=== PATIENT | female | born 1990 | race Two or more races ===

== ENCOUNTER 2016-06-08 19:20 | Emergency (ER) | payer SELFPAY ==
[~2016-06-08] VITALS: Ht 154.9 cm; Wt 43.1 kg
[~2016-06-08 19:20] MED LIST: CEPHALEXIN500 MG ORAL; IBUPROFEN600 MG ORAL; NKM; NORCO 5-325 TA1 EACH ORAL
[2016-06-08] MEDS ORDERED: Lidocaine 2% Visc 15ml soln ORAL ONE (20:00)
[2016-06-08] MEDS ORDERED: Mylanta II UD 30ml ORAL ONE (20:00)
--- NOTE | 2016-06-08 20:42 | Emergency Room Report ---
History of Present Illness General Chief Complaint: Abdominal Pain Source: Patient Present Illness HPI 26-year-old female presents emergency department complaining of burning sensation in the stomach approximately one hour after taking Tylenol with Codeine. Patient states that she is currently in the process of oral miscarriage introduction and earlier today received the first medication and was told to take the second pill at home in 24 hours. She was prescribed Tylenol with codeine for cramping that is to be expected. She states that she took the medication on an empty stomach and is now having nausea and burning sensation in the epigastric area denies abdominal tenderness or cramping pain. Pt localized pain to just under the bottom of the sternum and describes her pain as more discomfort saying it " feels like my stomach is in a knot." She denies vomiting denies constipation or diarrhea. She denies recent travel or ill contacts denies fevers or chills. She denies rashes, swelling of the lips tongue or airway. Denies CP, Palpitations, LOC, AMS, dizziness, Changes in Vision, Sensation, paresthesias, or a sudden severe headache. Allergies: Coded Allergies: No Known Allergies (Unverified , 12/15/12) Patient History Past Medical History: see triage record Past Surgical History: none Pertinent Family History: none Now: No : 7 Para: 3 Immunizations: UTD Reviewed Nursing Documentation: PMH: Agreed, PSxH: Agreed Nursing Documentation-PMH Past Medical History: No History, Except For Hx Asthma: Yes Review of Systems All Other Systems: negative except mentioned in HPI Physical Exam Vital Signs Date Time Temp Pulse Resp B/P Pulse Ox O2 Delivery O2 Flow Rate FiO2 06/08/16 19:41 98.1 63 12 114/68 100 Sp02 EP Interpretation: reviewed, normal General Appearance: no apparent distress, alert, GCS 15, non-toxic Head: normocephalic, atraumatic Eyes: bilateral eye PERRL, bilateral eye normal inspection ENT: hearing grossly normal, normal pharynx, no angioedema, normal voice Neck: full range of motion, supple/symm/no masses Respiratory: chest non-tender, lungs clear, normal breath sounds, speaking full sentences Cardiovascular #1: regular rate, rhythm, no edema Gastrointestinal: normal bowel sounds, non tender, soft, no guarding, no rebound, other - Negative Durham signs, Negative MacBurney's sign, Negative Rosvigns Sign, Negative Psoas, No Peritoneal signs. Rectal: deferred Genitourinary: normal inspection, no CVA tenderness Musculoskeletal: back normal, gait/station normal, normal range of motion, non- tender, no calf tenderness Neurologic: alert, oriented x3, responsive, motor strength/tone normal, sensory intact, speech normal Psychiatric: judgement/insight normal, memory normal, mood/affect normal, no suicidal/homicidal ideation Reflexes: 4+ bicep (R), 4+ bicep (L), 4+ tricep (R), 4+ tricep (L), 4+ knee (R) , 4+ knee (L) Skin: normal color, no rash, warm/dry, well hydrated Lymphatic: no adenopathy Medical Decision Making PA Attestation Dr. jaramillo is my supervising Physician whom patient management has been discussed with. Diagnostic Impression: Primary Impression: Gastritis Qualified Codes: K29.70 - Gastritis, unspecified, without bleeding ER Course 26-year-old female presents emergency department complaining of burning sensation in the stomach approximately one hour after taking Tylenol with Codeine. Patient states that she is currently in the process of oral miscarriage introduction and earlier today received the first medication and was told to take the second pill at home in 24 hours. She was prescribed Tylenol with codeine for cramping that is to be expected. She states that she took the medication on an empty stomach and is now having nausea and burning sensation in the epigastric area denies abdominal tenderness or cramping pain. She denies vomiting denies constipation or diarrhea. She denies recent travel or ill contacts denies fevers or chills. She denies rashes, swelling of the lips tongue or airway. Denies CP, Palpitations, LOC, AMS, dizziness, Changes in Vision, Sensation, paresthesias, or a sudden severe headache. Ddx considered but are not limited to Gastritis, acute appy, diarrhea, UC, PUD, GE, pancreatitis, gallstone Vital signs: are WNL, pt. is afebrile H&PE are most consistent with drug induced gastritis, PE does not suggest acute intra-abdominal process no appreciable TTP on PE, pt NAD non-toxic in appearance. ORDERS: - none required at this time dx is clinical and VS are WNL ED INTERVENTIONS: -4mg Zofran PO - Gi Cocktail PO -Zantac PO --upon re-evaluation pt. states her throat is numb, however her stomach ache has subsided. d/w pt. to follow up with PCP and OBGYN as needed, and to return to the ED with worsening or new symptoms. DISCHARGE: At this time pt. is stable for d/c to home. Will provide printed patient care instructions, and any necessary prescriptions. Care plan and follow up instructions have been discussed with the patient prior to discharge. Last Vital Signs Date Time Temp Pulse Resp B/P Pulse Ox O2 Delivery O2 Flow Rate FiO2 06/08/16 19:41 98.1 63 12 114/68 100 Disposition: HOME, SELF-CARE Condition: Stable Scripts Acetaminophen* (TYLENOL EXTRA STRENGTH*) 500 Mg Tablet 500 MG ORAL Q6H, #30 TAB 0 Refills Prov: Drea Rosario 06/08/16 Ranitidine Hcl* (ZANTAC*) 150 Mg Tablet 150 MG ORAL TWICE A DAY for 30 Days, #60 TAB Prov: Drea Rosario 06/08/16 Ondansetron Odt* (ZOFRAN ODT*) 4 Mg Tab.rapdis 4 MG ORAL Q6H Y for Nausea & Vomiting, #30 TAB Prov: Drea Rosario 06/08/16 Referrals: NOT CHOSEN [facility]/,REFERRING (PCP) Patient Instructions: Gastritis, Adult, Abdominal Pain, Adult Additional Instructions: Take medications as directed. Follow up with PCP and OBGYN in 3 days Return sooner to ED if new symptoms occur, or current symptoms become worse. - Please note that this Emergency Department Report was dictated using [employer] carbon brushes technology software, occasionally this can lead to erroneous entry secondary to interpretation by the dictation equipment. Drea Rosario Jun 08, 2016 20:42
[2016-06-08] MEDS ORDERED: ZANTAC150 MG ORAL (20:53)
[2016-06-08] MEDS ORDERED: ZOFRAN ODT4 MG ORAL (20:53)
[2016-06-08] MEDS ORDERED: TYLENOL EXTRA500 MG ORAL (20:53)
[2016-06-08 21:01] VITALS: BP_SYST 114; BP_SYST 117; BP_DIAS 68; BP_DIAS 71
== END 2016-06-08 21:02 | disposition home or self-care (01) ==
LOC: EMR 20:16
DX: K29.70 Gastritis, unspecified, without bleeding (principal); J45.909 Unspecified asthma, uncomplicated
CPT/HCPCS: 99284

== ENCOUNTER 2017-09-13 21:15 | Emergency (ER) | payer OTHER ==
[~2017-09-13] VITALS: Ht 154.9 cm; Wt 45.4 kg
[~2017-09-13 21:15] MED LIST changes: +TYLENOL EXTRA500 MG ORAL; +ZANTAC150 MG ORAL; +ZOFRAN ODT4 MG ORAL
[2017-09-13 22:00] VITALS: BP 108/71
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
[2017-09-13] MEDS ORDERED: IBUPROFEN600 MG ORAL (22:46)
[2017-09-13 23:00] VITALS: BP 108/71
--- NOTE | 2017-09-14 10:09 | Diagnostic Imaging Report ---
Indication: Trauma Technique: Continuous helical CT scanning of the head was performed utilizing automated exposure control without intravenous contrast material. Axial and coronal reconstructions were obtained. Comparison: None CT dose: Total DLP 1323.3 mGycm; CTDI vol 70.38 mGy Findings: There is no acute intracranial hemorrhage, mass effect or cortical edema. The ventricles, cisterns and sulci are in normal limits for age. Incidental note is made of a retrocerebellar cyst. Visualized mastoid air cells and paranasal sinuses are unremarkable. There is an anterior scalp hematoma. No associated calvarial fracture. IMPRESSION: Anterior scalp hematoma. No calvarial fracture. No evidence of acute intracranial hemorrhage, mass effect or cortical edema. This corresponds with the [facility] preliminary report. Atrophy and nonspecific periventricular hypoattenuation suggestive of chronic ischemic microvascular changes. The CT scanner at [facility] is accredited by the [employer] and the scans are performed using protocols designed to limit radiation exposure to as low as reasonably achievable to attain images of sufficient resolution adequate for diagnostic evaluation.
== END 2017-09-13 23:00 | disposition home or self-care (01) ==
LOC: EMR 21:46
DX: S00.83XA Contusion of other part of head, initial encounter (principal); S00.432A Contusion of left ear, initial encounter; Y04.2XXA Assault by strike against or bumped into by another person, initial encounter; Y92.9 Unspecified place or not applicable; J45.909 Unspecified asthma, uncomplicated
CPT/HCPCS: 70450; 99284

== ENCOUNTER 2018-02-17 11:43 | Emergency (ER) | payer OTHER ==
[~2018-02-17] VITALS: Ht 154.9 cm; Wt 47.6 kg
[2018-02-17 11:50] VITALS: BP 100/72
[2018-02-17] MEDS ORDERED: NKM (11:51)
[2018-02-17 12:20] LABS: APPEARANCE,URINE CLEAR; BILIRUBIN, URINE NEGATIVE (NEGATIVE); GLUCOSE, URINE (UA) NEGATIVE (NEGATIVE); KETONES,URINE NEGATIVE (NEGATIVE); LEUKOCYTE ESTERASE ,URINE 1+ (NEGATIVE); NITRITE,URINE NEGATIVE (NEGATIVE); PH,URINE 6.5 (4.5-8.0); PROTEIN,URINE 1+ (NEGATIVE); UROBILINOGEN,URINE NORMAL MG/DL (0.0-1.0)
[2018-02-17 12:33] LABS: COLOR,URINE YELLOW
--- NOTE | 2018-02-17 13:39 | Emergency Room Report ---
History of Present Illness General Chief Complaint: Abdominal Pain Source: Patient Present Illness HPI 27-year-old female with no significant past medical history her complaining of 3 days of left lower quadrant pain radiating the pain 7 out of 10 and intermittent accompanied with nausea and one episode of vomiting. Denies diarrhea, blood in stool, recent travel, start of recent medication. Denies dysuria, hematuria, urinary frequency, flank pain, fever and chills. She reports she started getting Depo injections a few months ago and she received her second injection one month ago. She reports ever since the start of Depo she has been getting heavy menses and cramping. She is currently on her menses. Denies fatigue, SOB, chest pain, palpitation. She is sexually active and denies any vaginal discharge or pruritus as well as vaginal ulcers. Denies history of ovarian cysts or any abnormality of the uterus.patient reports having only yesterday and one bout of vomiting no nausea or vomiting today Allergies: Coded Allergies: No Known Allergies (Unverified , 12/15/12) Patient History Past Surgical History: none Pertinent Family History: none Now: No Immunizations: UTD Reviewed Nursing Documentation: PMH: Agreed; PSxH: Agreed Nursing Documentation-PMH Past Medical History: No History, Except For Hx Asthma: Yes Review of Systems All Other Systems: negative except mentioned in HPI Physical Exam Vital Signs Date Time Temp Pulse Resp B/P (MAP) Pulse Ox O2 Delivery O2 Flow Rate FiO2 02/17/18 11:46 98.4 76 18 99/69 99 Room Air Sp02 EP Interpretation: reviewed, normal General Appearance: normal inspection, well appearing, no apparent distress, alert Head: normocephalic, atraumatic Eyes: bilateral eye normal inspection, bilateral eye PERRL ENT: normal ENT inspection, normal pharynx Neck: normal inspection, full range of motion, supple Respiratory: normal inspection, chest non-tender, lungs clear, normal breath sounds, no respiratory distress, no wheezing Cardiovascular #1: normal inspection, no edema, no murmur Gastrointestinal: normal inspection, normal bowel sounds, soft, no mass, no bruit, non-distended, no guarding, no rebound Rectal: deferred Genitourinary: no CVA tenderness Musculoskeletal: normal inspection, back normal, digits/nails normal, gait/ station normal Neurologic: normal inspection, alert, oriented x3, responsive, horticulture professor III-XII nml as tested Psychiatric: normal inspection, judgement/insight normal, memory normal Skin: normal inspection, normal color, no rash, warm/dry, palpation normal, well hydrated, normal turgor Lymphatic: normal inspection, no adenopathy Medical Decision Making PA Attestation all diagnoses and treatment plans were reviewed and discussed with supervising physician, Dr. Mayo Diagnostic Impression: Primary Impression: Dysmenorrhea Additional Impressions: Abdominal pain Adverse reaction to control pills ER Course 27-year-old female with no significant past medical history her complaining of 3 days of left lower quadrant pain radiating the pain 7 out of 10 and intermittent accompanied with nausea and one episode of vomiting. Denies diarrhea, blood in stool, recent travel, start of recent medication. Denies dysuria, hematuria, urinary frequency, flank pain, fever and chills. She reports she started getting Depo injections a few months ago and she received her second injection one month ago. She reports ever since the start of Depo she has been getting heavy menses and cramping. She is currently on her menses. Denies fatigue, SOB, chest pain, palpitation. She is sexually active and denies any vaginal discharge or pruritus as well as vaginal ulcers. Denies history of ovarian cysts or any abnormality of the uterus.patient reports having only yesterday and one bout of vomiting no nausea or vomiting today Ddx considered but are not limited to ovarian cyst, diverticulitis, ovarian torsion, ischemia area, adverse reaction to Depo Vital signs: are WNL, pt. is afebrile H&PE are most consistent with dysmenorrhea, adverse reaction to Depo ORDERS: urine test, UA, abdomen/pelvic US ED INTERVENTIONS: None required at this time. DISCHARGE: At this time pt. is stable for d/c to home. Will provide printed patient care instructions, and any necessary prescriptions. Care plan and follow up instructions have been discussed with the patient prior to discharge. urine neg CT/MRI/US Diagnostic Results CT/MRI/US Diagnostic Results : Imaging Test Ordered: pelvic US Impression US PELVIS: Assuming negative test. Correlate Heterogeneous uterus. No complex adnexal lesions or torsion. Last Vital Signs Date Time Temp Pulse Resp B/P (MAP) Pulse Ox O2 Delivery O2 Flow Rate FiO2 02/17/18 11:50 98.6 73 16 100/72 99 Room Air Disposition: HOME, SELF-CARE Condition: Stable Scripts Ibuprofen* (MOTRIN*) 600 Mg Tablet 600 MG ORAL Q8H PRN for For Pain, #30 TAB 0 Refills Prov: Jana Kiser 02/17/18 Referrals: [facility],REFERRING (PCP) Patient Instructions: Abdominal Pain, Adult, Dysmenorrhea, [id number] Additional Instructions: follow-up with the primary care provider regarding changing her control method, avoid eating foods that causes inflammation, increase oral hydration Jana Kiser Feb 17, 2018 13:39
[2018-02-17] MEDS ORDERED: IBUPROFEN600 MG ORAL (13:40)
[2018-02-17 13:43] VITALS: BP 112/67
--- NOTE | 2018-02-18 08:33 | Diagnostic Imaging Report ---
Indication: Pelvic pain, negative test Technique: Transabdominal and transvaginal images. Doppler interrogation of the bilateral ovaries Comparison: none Findings: Uterus measures 8 cm length by 3.5 cm AP. The endometrium measures 1 mm thick. No myometrial abnormality. Right ovary measures 3.1 cm in length. Left ovary measures 3 cm in length. No adnexal mass. Normal ovarian blood flow. No free cul-de-sac fluid Impression: Negative This agrees with the preliminary interpretation provided overnight by [facility].
== END 2018-02-17 13:43 | disposition home or self-care (01) ==
LOC: EMR 12:05
DX: N94.6 Dysmenorrhea, unspecified (principal); R10.32 Left lower quadrant pain; T50.995A Adverse effect of other drugs, medicaments and biological substances, initial encounter; Y92.9 Unspecified place or not applicable; J45.909 Unspecified asthma, uncomplicated
CPT/HCPCS: 76830; 76856; 81003; 81025; 99284

== ENCOUNTER 2019-02-27 12:00 | Emergency (ER) | payer MEDICAID, OTHER ==
[~2019-02-27] VITALS: Ht 154.9 cm; Wt 45.4 kg
--- NOTE | 2019-02-27 12:06 | NUR ---
ED Nurse Note: PT NOT FOUND IN THE WAITING ROOM.
--- NOTE | 2019-02-27 12:15 | NUR ---
ED Nurse Note: Pt in chair; VSS; no signs of acute distress.
[2019-02-27 12:26] VITALS: BP 99/59
[2019-02-27 12:30] VITALS: BP 100/60
--- NOTE | 2019-02-27 12:52 | Emergency Room Report ---
History of Present Illness General Chief Complaint: Sore Throat Source: Patient Present Illness HPI 29-year-old female presents to the emergency department complaining of 7 out of 10 severity sore throat, cough, nasal congestion and rhinorrhea with intermittent fevers and chills x2 weeks. Patient also reports she has ill contacts or 2 children at home have similar symptoms and they have been passing it back and forth. Patient reports several days she felt better however then she began feeling ill again with the same symptoms. Patient reports that she is up-to-date with vaccinations except for this years flu vaccine. Patient denies recent travel. She denies headache, photophobia, neck pain or stiffness. Patient reports he took Motrin prior to arrival due to having fevers and chills. She denies any other aggravating or relieving factors. Patient reports that her throat is her primary symptom and her pain is exacerbated upon swallowing anything coughing. Allergies: Coded Allergies: No Known Allergies (Unverified , 12/15/12) Patient History Past Medical History: see triage record Past Surgical History: none Pertinent Family History: none Now: No Immunizations: UTD Reviewed Nursing Documentation: PMH: Agreed; PSxH: Agreed Nursing Documentation-PMH Past Medical History: No History, Except For Hx Asthma: Yes Review of Systems All Other Systems: negative except mentioned in HPI Physical Exam Vital Signs Date Time Temp Pulse Resp B/P (MAP) Pulse Ox O2 Delivery O2 Flow Rate FiO2 02/27/ 12:26 98.2 87 17 99/59 (72) 99 Room Air Sp02 EP Interpretation: reviewed, normal General Appearance: no apparent distress, alert, GCS 15, non-toxic Head: normocephalic, atraumatic Eyes: bilateral eye normal inspection, bilateral eye PERRL ENT: hearing grossly normal, no angioedema, normal voice, TMs + canals normal, uvula midline, moist mucus membranes, nasal congestion, tonsillar swelling, pharyngeal erythema Neck: full range of motion Respiratory: lungs clear, normal breath sounds, no wheezing, speaking full sentences Cardiovascular #1: regular rate, rhythm Musculoskeletal: normal range of motion, gait/station normal, non-tender Neurologic: alert, motor strength/tone normal, oriented x3, sensory intact, responsive, speech normal Psychiatric: judgement/insight normal Skin: no rash Lymphatic: no adenopathy Medical Decision Making PA Attestation Dr. Navarrete is my supervising Physician whom patient management has been discussed with. Diagnostic Impression: Primary Impression: Acute viral syndrome Additional Impressions: Viral pharyngitis Post-nasal drainage Cough ER Course 29-year-old female presents to the emergency department complaining of 7 out of 10 severity sore throat, cough, nasal congestion and rhinorrhea with intermittent fevers and chills x2 weeks. Patient also reports she has ill contacts or 2 children at home have similar symptoms and they have been passing it back and forth. Patient reports several days she felt better however then she began feeling ill again with the same symptoms. Patient reports that she is up-to-date with vaccinations except for this years flu vaccine. Patient denies recent travel. She denies headache, photophobia, neck pain or stiffness. Patient reports he took Motrin prior to arrival due to having fevers and chills. She denies any other aggravating or relieving factors. Patient reports that her throat is her primary symptom and her pain is exacerbated upon swallowing anything coughing. Ddx considered but are not limited to URI, pneumonia, PE, strep pharyngitis, meningitis, influenza, OM/OE just to name a few. Vital signs: Pt. is afebrile, the remaining VS are WNL H&PE are most consistent with Viral Syndrome /URI not suspicious for Influenza will treat clinically - no meningeal signs, Lungs are clear and oropharynx is not involved, no evidence of bacterial infection at this time. ORDERS: none required at this time, the diagnosis is clinical ED INTERVENTIONS: None required at this time. DISCHARGE: At this time pt. is stable for d/c to home. Will provide printed patient care instructions, and any necessary prescriptions. Care plan and follow up instructions have been discussed with the patient prior to discharge. Last Vital Signs Date Time Temp Pulse Resp B/P (MAP) Pulse Ox O2 Delivery O2 Flow Rate FiO2 02/27/19 12:26 98.2 87 17 99/59 (72) 99 Room Air Disposition: HOME, SELF-CARE Condition: Stable Patient Instructions: Sore Throat, Upper Respiratory Infection, Adult, Easy-to- Read Additional Instructions: Take medications as directed. If your hands regularly and cover your cough at all times. Virus are contagious by being airborne and each time you cough the droplets can spread up to 3 feet around you. Follow up with a Primary Care Provider in 3-5 days, even if your symptoms have resolved. Return sooner to ED if new symptoms occur, or current symptoms become worse. Do not drink alcohol, drive, or operate heavy machinery while taking Cough Syrup as this may cause drowsiness. - Please note that this Emergency Department Report was dictated using [employer] machine operator technology software, occasionally this can lead to erroneous entry secondary to interpretation by the dictation equipment. Drea Rosario Feb 27, 2019 12:52
[2019-02-27] MEDS ORDERED: PROMETHAZINE-C118 M1 ORAL (12:56)
[2019-02-27] MEDS ORDERED: MUCINEX1200 MG PO (12:56)
[2019-02-27] MEDS ORDERED: LIDOCAINE VISC100 ML ORAL (12:56)
[2019-02-27] MEDS ORDERED: TYLENOL EXTRA500 MG ORAL (12:56)
--- NOTE | 2019-02-27 13:00 | NUR ---
ER DISCHARGE NOTE: Patient is cleared to be discharged per ERMD, pt is aox4, on room air, with stable vital signs. pt was given dc and prescription instructions, pt was able to verbalize understanding, pt id band removed. pt is able to ambulate with steady gait. pt took all belongings.
== END 2019-02-27 13:00 | disposition home or self-care (01) ==
LOC: EMR 12:30
DX: B34.9 Viral infection, unspecified (principal); J02.8 Acute pharyngitis due to other specified organisms; R09.82 Postnasal drip; R05 Cough; J45.909 Unspecified asthma, uncomplicated
CPT/HCPCS: 99282

== ENCOUNTER 2020-01-12 15:38 | Emergency (ER) | payer MEDICAID, OTHER ==
[~2020-01-12] VITALS: Ht 154.9 cm; Wt 45.4 kg
[~2020-01-12 15:38] MED LIST changes: +LIDOCAINE VISC100 ML ORAL; +MUCINEX1200 MG PO; +PROMETHAZINE-C118 M1 ORAL
[2020-01-12 16:07] VITALS: BP 112/72
--- NOTE | 2020-01-12 16:07 | NUR ---
ED Nurse Note: Pt walked into ED for R rib pain since yesterday 10/12. Pt denies trauma or injury or fall. She describes it as pressure. Pt is alert and orientedx4, ambulatory. She has no wounds, denies feeling SOB.
--- NOTE | 2020-01-12 16:38 | Emergency Room Report ---
History of Present Illness General Chief Complaint: Abdominal Pain Source: Patient Present Illness HPI 29 YO female presents to the ED c/o 09/11 right lower rib/ right upper abdominal pain. Pt. reports pain started bilaterally 5 days ago but is now localized on the right side. She reports pain with deep inhalation. She denies nausea vomiting. She denies fevers but reports multiple episodes of chills. She d enies constipation or diarrhea. She does report that she is currently on her menstrual cycle. She denies appreciable trauma or fall. Patient denies recent strenuous activity. She denies cough. She denies chest pain or palpitations. No other aggravating or relieving factors. She denies low back pain. Allergies: Coded Allergies: No Known Allergies (Unverified , 12/15/12) COVID-19 Screening Contact w/high risk pt: No Experienced COVID-19 symptoms?: No COVID-19 Testing performed HEAD START DIRECTOR: No Patient History Past Medical History: see triage record Past Surgical History: none Pertinent Family History: none Last Menstrual Period: 01/05/2020 Reviewed Nursing Documentation: PMH: Agreed; PSxH: Agreed Nursing Documentation-PMH Past Medical History: No History, Except For Hx Asthma: Yes Review of Systems All Other Systems: negative except mentioned in HPI Physical Exam Vital Signs Date Time Temp Pulse Resp B/P (MAP) Pulse Ox O2 Delivery O2 Flow Rate FiO2 01/12/20 15:43 97.7 71 16 103/70 (81) 100 Room Air 01/12/20 16:07 99 Sp02 EP Interpretation: reviewed, normal General Appearance: no apparent distress, alert, GCS 15, non-toxic Head: normocephalic, atraumatic Eyes: bilateral eye normal inspection, bilateral eye PERRL ENT: hearing grossly normal, normal voice Neck: full range of motion Respiratory: chest non-tender, lungs clear, normal breath sounds, speaking full sentences Cardiovascular #1: regular rate, rhythm Gastrointestinal: normal bowel sounds, non tender, soft, tenderness - mild TTP in RUQ- mainly on the lower right rib. no appreciable clinical grossman's sign Rectal: deferred Genitourinary: normal inspection, no CVA tenderness Musculoskeletal: back normal, normal range of motion, gait/station normal, non- tender Neurologic: alert, motor strength/tone normal, oriented x3, sensory intact, responsive, speech normal Psychiatric: judgement/insight normal Skin: no rash, normal color Lymphatic: no adenopathy Medical Decision Making PA Attestation Dr. Bryan Is my supervising Physician whom patient management has been discussed with. Diagnostic Impression: Primary Impression: Acute urinary tract infection ER Course 29 YO female presents to the ED c/o 09/11 right lower rib/ right upper abdominal pain. Pt. reports pain started bilaterally 5 days ago but is now localized on the right side. She reports pain with deep inhalation. She denies nausea vomit ing. She denies fevers but reports multiple episodes of chills. She denies constipation or diarrhea. She does report that she is currently on her menstrual cycle. She denies appreciable trauma or fall. Patient denies recent strenuous activity. She denies cough. She denies chest pain or palpitations. No other aggravating or relieving factors. Ddx considered but are not limited to Diverticulitis, acute appendicitis, diarrhea,UC, PUD, GE, pancreatitis, gallstone, renal stone, pneumonitis, rib contusion, PNA just to name a few. Vital signs: are WNL, pt. is afebrile H&PE are most consistent with Possible UTI VS pneumonitis ORDERS: -CBC, CMP, LIPASE: WNL -UA: Notable for infection -URINE HCG: Negative -CXR: Unremarkable ED INTERVENTIONS: -PT. education regarding CIPRO and increased risk for ATR. - DISCHARGE: At this time pt. is stable for d/c to home. Will provide printed patient care instructions, and any necessary prescriptions. Care plan and follow up instructions have been discussed with the patient prior to discharge. Labs Test 01/12/20 16:27 01/12/20 16:34 White Blood Count 6.9 K/UL (4.8-10.8) Red Blood Count 4.27 M/UL (4.20-5.40) Hemoglobin 13.4 G/DL (12.0-16.0) Hematocrit 40.7 % (37.0-47.0) Mean Corpuscular Volume 95 FL (80-99) Mean Corpuscular Hemoglobin 31.3 PG (27.0-31.0) Mean Corpuscular Hemoglobin Concent 32.9 G/DL (32.0-36.0) Red Cell Distribution Width 12.4 % (11.6-14.8) Platelet Count 231 K/UL (150-450) Mean Platelet Volume 10.0 FL (6.5-10.1) Neutrophils (%) (Auto) 70.5 % (45.0-75.0) Lymphocytes (%) (Auto) 18.3 % (20.0-45.0) Monocytes (%) (Auto) 8.5 % (1.0-10.0) Eosinophils (%) (Auto) 1.7 % (0.0-3.0) Basophils (%) (Auto) 1.1 % (0.0-2.0) Sodium Level 138 MMOL/L (136-145) Potassium Level 3.6 MMOL/L (3.5-5.1) Chloride Level 103 MMOL/L (98-107) Carbon Dioxide Level 28 MMOL/L (21-32) Anion Gap 7 mmol/L (5-15) Blood Urea Nitrogen 9 mg/dL (7-18) Creatinine 0.9 MG/DL (0.55-1.30) Estimat Glomerular Filtration Rate > 60 mL/min (>60) Glucose Level 94 MG/DL (74-106) Calcium Level 8.5 MG/DL (8.5-10.1) Total Bilirubin 0.4 MG/DL (0.2-1.0) Aspartate Amino Transf (AST/SGOT) 12 U/L (15-37) Alanine Aminotransferase (ALT/SGPT) 14 U/L (12-78) Alkaline Phosphatase 77 U/L (46-116) Total Protein 7.6 G/DL (6.4-8.2) Albumin 3.3 G/DL (3.4-5.0) Globulin 4.3 g/dL Albumin/Globulin Ratio 0.8 (1.0-2.7) Lipase 113 U/L (73-393) Urine Color Yellow Urine Appearance Cloudy Urine pH 6 (4.5-8.0) Urine Specific [place] 1.025 (1.005-1.035) Urine Protein 1+ (NEGATIVE) Urine Glucose (UA) Negative (NEGATIVE) Urine Ketones Negative (NEGATIVE) Urine Blood 5+ (NEGATIVE) Urine Nitrite Negative (NEGATIVE) Urine Bilirubin Negative (NEGATIVE) Urine Urobilinogen 1 MG/DL (0.0-1.0) Urine Leukocyte Esterase 2+ (NEGATIVE) Urine RBC 10-15 /HPF (0 - 2) Urine WBC 60-80 /HPF (0 - 2) Urine Squamous Epithelial Cells Many /LPF (NONE/OCC) Urine Bacteria Many /HPF (NONE) Urine HCG, Qualitative Negative (NEGATIVE) Chest X-Ray Diagnostic Results Chest X-Ray Diagnostic Results : Chest X-Ray Ordered: Yes # of Views/Limited/Complete: 1 View Indication: Chest Pain EP Interpretation: Yes PA Xray: Interpretation reviewed, by supervising MD, and agrees with findings. Interpretation: no consolidation, no effusion, no pneumothorax, no acute cardiopulmonary disease Impression: No acute disease Electronically Signed by: Drea Rosario PA-C Last Vital Signs Date Time Temp Pulse Resp B/P (MAP) Pulse Ox O2 Delivery O2 Flow Rate FiO2 01/12/20 16:07 74 19 Room Air 99 01/12/20 16:07 97.7 112/72 99 Status: improved Disposition: HOME, SELF-CARE Condition: Stable Scripts Tramadol Hcl* (ULTRAM*) 50 Mg Tablet 50 MG ORAL Q6H PRN for For Pain, #10 TAB 0 Refills Prov: Drea Rosario 01/12/20 Ciprofloxacin Hcl* (CIPROFLOXACIN HCL*) 500 Mg Tablet 500 MG ORAL EVERY 12 HOURS for 7 Days, #14 TAB 0 Refills Prov: Drea Rosario 01/12/20 Patient Instructions: Urinary Tract Infection, [id number] Additional Instructions: Take medications as directed. Do not drink alcohol, drive, or operate heavy machinery while taking Tramadol as this may cause drowsiness. DO NOT PARTICIPATE IN STRENUOUS ACTIVITIES OR SPORTS x 3 MONTHS The antibiotic you are on is known for increasing the risk of Achilles Tendon Rupture. Follow up with a Primary Care Provider in 3-5 days, even if your symptoms have resolved. --Please review list of primary care clinics, if you do not already have a primary care provider Return sooner to ED if new symptoms occur, or current symptoms become worse. - Please note that this Emergency Department Report was dictated using [employer] check out technology software, occasionally this can lead to erroneous entry secondary to interpretation by the dictation equipment. Drea Rosario Jan 12, 2020 16:38
[2020-01-12 16:53] LABS: BASOPHILS % (AUTO) 1.1 % (0.0-2.0); EOSINOPHILS % (AUTO) 1.7 % (0.0-3.0); HEMATOCRIT 40.7 % (37.0-47.0); HEMOGLOBIN 13.4 G/DL (12.0-16.0); LYMPHOCYTES % (AUTO) 18.3 % (20.0-45.0); MEAN CORPUSCULAR VOLUME 95 FL (80-99); MONOCYTES % (AUTO) 8.5 % (1.0-10.0); NEUTROPHILS % (AUTO) 70.5 % (45.0-75.0); PLATELET COUNT 231 K/UL (150-450); RED BLOOD COUNT 4.27 M/UL (4.20-5.40); RED CELL DISTRIBUTION WIDTH 12.4 % (11.6-14.8); WHITE BLOOD COUNT 6.9 K/UL (4.8-10.8)
[2020-01-12 17:03] LABS: ANION GAP 7 mmol/L (5-15); BLOOD UREA NITROGEN 9 mg/dL (7-18); CARBON DIOXIDE 28 MMOL/L (21-32); CHLORIDE 103 MMOL/L (98-107); CREATININE 0.9 MG/DL (0.55-1.30); POTASSIUM 3.6 MMOL/L (3.5-5.1); SODIUM 138 MMOL/L (136-145)
[2020-01-12 17:04] LABS: CALCIUM 8.5 MG/DL (8.5-10.1)
[2020-01-12 17:08] LABS: ALANINE AMINOTRANSFERASE 14 U/L (12-78); ALBUMIN 3.3 G/DL (3.4-5.0); ALBUMIN/GLOBULIN RATIO 0.8 (1.0-2.7); ALKALINE PHOSPHATASE 77 U/L (46-116); ASPARTATE AMINO TRANSFERASE 12 U/L (15-37); BILIRUBIN,TOTAL 0.4 MG/DL (0.2-1.0)
--- NOTE | 2020-01-12 17:08 | Diagnostic Imaging Report ---
Indication: Chest pain Technique: One view of the chest Comparison: none Findings: Lungs and pleural spaces are clear. Heart size is normal. Impression: No acute process
[2020-01-12 17:14] LABS: APPEARANCE,URINE CLOUDY; BILIRUBIN, URINE NEGATIVE (NEGATIVE); GLUCOSE, URINE (UA) NEGATIVE (NEGATIVE); KETONES,URINE NEGATIVE (NEGATIVE); LEUKOCYTE ESTERASE ,URINE 2+ (NEGATIVE); NITRITE,URINE NEGATIVE (NEGATIVE); PH,URINE 6 (4.5-8.0); PROTEIN,URINE 1+ (NEGATIVE); UROBILINOGEN,URINE 1 MG/DL (0.0-1.0)
[2020-01-12 17:26] LABS: COLOR,URINE YELLOW
[2020-01-12] MEDS ORDERED: TRAMADOL HCL50 MG ORAL (17:37)
[2020-01-12] MEDS ORDERED: CIPROFLOXACIN500 M2 ORAL (17:37)
[2020-01-12 17:45] VITALS: BP 128/88
== END 2020-01-12 17:45 | disposition home or self-care (01) ==
LOC: EMR 17:34
DX: N39.0 Urinary tract infection, site not specified (principal); R07.81 Pleurodynia; R10.11 Right upper quadrant pain; J45.909 Unspecified asthma, uncomplicated
CPT/HCPCS: 36415; 71045; 80053; 81003; 81025; 83690; 85025; 87086; Z7502; 99283